=== PATIENT | female | born 1985 | race American Indian/Alaskan Native ===

== ENCOUNTER 2019-02-04 13:56 | Outpatient (CLI) | payer OTHER ==
--- NOTE | 2019-02-04 15:28 | Fluoroscopy Report ---
FLUOROSCOPY HYSTEROSALPINGOGRAM History: Infertility, endometriosis. Description of procedure: Informed consent was obtained. The patient was given the opportunity to ask questions. Sterile technique was utilized. The perineum was prepped and draped in sterile fashion. A speculum was utilized to visualize the cervix. The cervix was cleaned. Multiple attempts to cannulate the cervix were made. 2 dilators were used. After multiple attempts of failed cannulation, it was decided to terminate the procedure. The patient was in agreement. Impression: Unsuccessful hysterosalpingogram. The cervix could not be cannulated for catheter placement. I suspect cervical stenosis could be present.
== END 2019-02-04 13:57 | disposition home or self-care (01) ==
LOC: FLUORO 13:56
PROVIDERS: ATTEND Obstetrics & Gynecology
DX: N97.1 Female infertility of tubal origin (principal); N80.3 Endometriosis of pelvic peritoneum; F17.210 Nicotine dependence, cigarettes, uncomplicated
CPT/HCPCS: 58340; 74740; Q9967